=== PATIENT | female | born 1965 | race Hispanic/Latino ===

== ENCOUNTER 2016-04-05 09:49 | Day surgery (SDC) | payer OTHER ==
[~2016-04-05] VITALS: Ht 152.4 cm; Wt 79.8 kg
[~2016-04-05 09:49] MED LIST: ATEN100T PO; AZU500 PO; CITA40TA13 PO; CYCL5TAB PO; DENO60DI SQ; ERGO500029 PO; GABA800T2 PO; GLIP10TA10 PO; HYDR200T5 PO; LISI40TA PO; LOVA20TA PO; METF10002 PO; MORP30CA17 PO; NPR500T PO; OXYC10TA8 PO; OYSCO PO; POTA10CA42 PO; PRE10 PO; RITUX IV; Sodium Chloride LOK Flush 10 mL Syringe IV PRN; fentaNYL-PF 50 mCg/mL 2 mL Inj IVPUSH PRN
[2016-04-05 10:37] VITALS: BP 143/77; PULSE 70; RESP 17; O2SAT 99
[2016-04-05] MEDS: 0.9% Sodium Chloride 1,000 ML IV SCH ×2 (11:33→11:42)
[2016-04-05 11:55] VITALS: BP 185/88; PULSE 75; RESP 14; O2SAT 98
[2016-04-05 12:04] VITALS: BP 148/79; PULSE 68; RESP 14; O2SAT 97
[2016-04-05 12:11] VITALS: BP 162/86; PULSE 80; RESP 16; O2SAT 93
--- NOTE | 2016-04-05 12:15 | ENDO ---
[address] [id number] ENDOSCOPY PROCEDURE PATIENT: DONNA HERNANDEZ : 1965 MR#: [id number] ADMIT: 04/05/2016 JOB ID: [id number] DATE OF SERVICE: 04/05/2016 PROCEDURE PERFORMED: Colonoscopy. INDICATIONS: Positive FIT test. ASA CLASSIFICATION: The patient's ASA classification is II. MALLAMPATI SCORE: Mallampati score was 2. MEDICATIONS: 1. Versed 3 mg. 2. Fentanyl 75 mcg. INSTRUMENT USED: PCF-H180AL. PREPARATION QUALITY: Good. PROCEDURE DETAILS: After informed consent was obtained, the patient was brought into the GI suite, where she was placed on oxygen via nasal cannula and monitored with continuous pulse oximeter, telemetry, and blood pressure monitoring. A time-out was performed. Then, she was placed in the left lateral decubitus position and medications were administered for sedation. Digital rectal exam was performed which was unremarkable. The colonoscope was then inserted into the rectum and advanced under direct visualization to the cecum, which was identified by the presence of the ileocecal valve and appendiceal orifice. Once the cecum was reached, the colonoscope was withdrawn back into the rectum, as the mucosa and lumen were examined. In the rectum, retroflexion was performed. Following retroflexion, remaining air in the rectum was suctioned, and procedure was completed. FINDINGS: On retroflexed views in the rectum, there were small internal hemorrhoids noted. IMPRESSION: 1. Small internal hemorrhoids. 2. Otherwise normal exam from rectum to cecum. RECOMMENDATIONS: Repeat colonoscopy in 10 years, sooner if symptoms should dictate. COMPLICATIONS: None. ESTIMATED BLOOD LOSS: Zero. MTDD
== END 2016-04-05 23:59 | disposition home or self-care (01) ==
LOC: END 09:49
PROVIDERS: ATTEND Internal Medicine Gastroenterology
DX: R19.5 Other fecal abnormalities (principal); K64.8 Other hemorrhoids; K76.0 Fatty (change of) liver, not elsewhere classified; R79.89 Other specified abnormal findings of blood chemistry; M06.9 Rheumatoid arthritis, unspecified; M79.7 Fibromyalgia; I10 Essential (primary) hypertension; E11.9 Type 2 diabetes mellitus without complications; K75.81 Nonalcoholic steatohepatitis (NASH); Z79.84 Long term (current) use of oral hypoglycemic drugs
CPT/HCPCS: 45378; 99153; G0500; J2250; J3010; J7030